=== PATIENT | male | born 1995 | race Two or more races ===

== ENCOUNTER 2017-08-03 08:28 | Emergency (ER) | payer BC, OTHER ==
[2017-08-03 08:40] VITALS: BP 144/75
[2017-08-03] MEDS ORDERED: Ketorolac 60 MG/2 ML SDV IM ONE (08:58)
--- NOTE | 2017-08-03 09:08 | EDM.PDOC ---
ED HPI GENERAL MEDICAL PROBLEM - General Chief Complaint: Genitourinary Problem Stated Complaint: STITCHES COMING OUT Time Seen by Provider: 08/03/17 08:50 Source of Information: Reports: Patient History Limitations: Reports: No Limitations - History of Present Illness INITIAL COMMENTS - FREE TEXT/NARRATIVE: Patient presents with complaints of scrotal pain. Had a vasectomy on Wednesday and states that both stitches have come out now and feels more pain and a pulling sensation in those areas. Has noted more scrotal swelling over the last 2 days. Was trying to ice but didn't see much improvement. Having more discomfort now. Was only sent home with ibuprofen to use for pain. He has noted mild drainage from the incision sites. No redness or warmth to the area or the scrotum. Is voiding without difficulty. Onset: Gradual Duration: Day(s): Location: Reports: Other (scrotum) Quality: Reports: Throbbing, Other (pulling) Improves with: Reports: Rest Worsens with: Reports: Movement Context: Reports: Other (surgery) Associated Symptoms: Denies: Fever/Chills, Nausea/Vomiting Treatments [employer] ARCHITECT: Reports: NSAIDS Groin Pain Score (Numeric/FACES): 4 - Related Data Allergies Allergy/AdvReac Type Severity Reaction Status Date / Time No Known Allergies Allergy Verified 08/03/17 08:40 Home Meds: Home Meds . [No Known Home Meds] 09/04/16 [History] Past Medical History - Past Health History Medical/Surgical History: Denies Medical/Surgical History Other Musculoskeletal History: Patient c/o right upper posterior leg pain for past two months. - Past Surgical History Male Surgical History: Reports: Vasectomy Social & Family History - Tobacco Use Smoking Status *Q: Never Smoker Years of Tobacco use: 3 Packs/Tins Daily: 0.5 - Caffeine Use Caffeine Use: Reports: None - Alcohol Use Days Per Week of Alcohol Use: 1 Number of Drinks Per Day: 4 Total Drinks Per Week: 4 - Recreational Drug Use Recreational Drug Use: No ED ROS GENERAL - Review of Systems Review Of Systems: ROS reveals no pertinent complaints other than HPI. ED EXAM, RENAL/ - Physical Exam Exam: See Below Exam Limited By: No Limitations General Appearance: Alert, WD/WN, No Apparent Distress GI/Abdominal: Normal Bowel Sounds, Soft, Non-Tender (Male) Exam: Scrotal Swelling, Scrotum Tenderness (L), Testicular Tenderness (L), Testicular Tenderness (R), Other (Patient does have 2 open 0.5 cm incisions to bilateral scrotum. Oozing serous drainage. Did culture. No redness or warmth. Swelling and tenderness noted. ) Neurological: Alert, Oriented Psychiatric: Normal Affect, Normal Mood Skin Exam: Wound/Incision. No: Erythema Course - Vital Signs Last Recorded V/S: Last Vital Signs Temp 98.6 F 08/03/17 08:34 Pulse 73 08/03/17 08:34 Resp 16 08/03/17 08:34 BP 144/75 H 08/03/17 08:34 Pulse Ox 98 08/03/17 08:34 - Orders/Labs/Meds Orders: Active Orders 24 hr Category Date Time Status CULTURE WOUND [RM] Stat Lab 08/03/17 08:59 Ordered Meds: Medications Discontinued Medications Generic Name Dose Route Start Last Admin Trade Name Freq PRN Reason Stop Dose Admin Ketorolac Tromethamine 60 mg 08/03/17 08:58 08/03/17 09:05 Toradol IM 08/03/17 08:59 60 mg ONETIME ONE Administration Departure - Departure Time of Disposition: 09:04 Disposition: Home, Self-Care 01 Condition: Good Clinical Impression: History of vasectomy, Scrotal swelling - Discharge Information Forms: ED Department Discharge Additional Instructions: 1. Rest 2. Elevate scrotum on pillow 3. Ice scrotum 4. Monitor for redness or further drainage 5. Toradol 10 mg every 6 hours as needed for discomfort and swelling 6. Contact surgeon if any other concerns. - My Orders Last 24 Hours: My Active Orders 08/03/17 08:59 CULTURE WOUND [RM] Stat - Assessment/Plan Last 24 Hours: My Active Orders 08/03/17 08:59 CULTURE WOUND [RM] Stat
== END 2017-08-03 09:15 | disposition home or self-care (01) ==
LOC: CC.ED 08:28
DX: N50.89 Other specified disorders of the male genital organs (principal); Z98.52 Vasectomy status
CPT/HCPCS: 87070; 96372; 99283; J1885

== ENCOUNTER 2018-11-21 23:31 | Emergency (ER) | payer OTHER, MEDICAID ==
[2018-11-21] MEDS ORDERED: Cyclobenzaprine 10 MG Tab PO ONE (23:32)
[2018-11-21] MEDS ORDERED: Acetaminophen/HYDROcodone 325-5 MG Tab PO ONE (23:32)
[2018-11-21 23:35] VITALS: BP 127/76
--- NOTE | 2018-11-21 23:51 | EDM.PDOC ---
ED HPI GENERAL MEDICAL PROBLEM - General Chief Complaint: Back Pain or Injury Stated Complaint: low back pain Time Seen by Provider: 11/21/18 23:40 Source of Information: Reports: Patient History Limitations: Reports: No Limitations - History of Present Illness INITIAL COMMENTS - FREE TEXT/NARRATIVE: in with c/o low back pain x 2 days, no problems voiding or having a BM, no numbness in back or into legs, no alberto anal/rectal numbness, no problems ambulating, no abd pain, no nvdc, no cp or sob, no fever or chills, advised bent over to picking tech something when sx started, does have a hx of low back problems Onset: Gradual Duration: Day(s): (2) Location: Reports: Back Quality: Reports: Ache, Same as Previous Episode Severity: Moderate Improves with: Reports: None Worsens with: Reports: Movement Context: Reports: Other (as above) Associated Symptoms: Reports: No Other Symptoms. Denies: Headaches, Nausea/ Vomiting, Weakness Treatments [employer] TECHNICAL OFFICER: Reports: Other (see below) (none) Lower Back Pain Score (Numeric/FACES): 9 - Related Data Allergies Allergy/AdvReac Type Severity Reaction Status Date / Time No Known Allergies Allergy Verified 11/21/18 23:54 Home Meds: Home Meds . [No Known Home Meds] 09/04/16 [History] Past Medical History - Past Health History Medical/Surgical History: Denies Medical/Surgical History Musculoskeletal History: Reports: Back Pain, Chronic Other Musculoskeletal History: Patient c/o right upper posterior leg pain for past two months. - Past Surgical History Head Surgeries/Procedures: Reports: None Male Surgical History: Reports: Vasectomy Social & Family History - Family History Cardiac: Reports: Hypertension - Tobacco Use Smoking Status *Q: Never Smoker - Caffeine Use Caffeine Use: Reports: None - Alcohol Use Alcohol Use History: Yes - Living Situation & Occupation Living situation: Reports: , with Family ED ROS GENERAL - Review of Systems Review Of Systems: See Below Constitutional: Reports: No Symptoms. Denies: Fever, Chills, Weakness HEENT: Reports: No Symptoms Respiratory: Reports: No Symptoms. Denies: Shortness of Breath, Cough Cardiovascular: Reports: No Symptoms. Denies: Chest Pain Endocrine: Reports: No Symptoms GI/Abdominal: Reports: No Symptoms. Denies: Abdominal Pain, Constipation, Diarrhea, Nausea, Vomiting : Reports: No Symptoms. Denies: Dysuria, Flank Pain, Frequency, Incontinence , Pain, Urgency, Urinary Retention Musculoskeletal: Reports: No Symptoms, Back Pain (low back pain). Denies: Neck Pain Skin: Reports: No Symptoms Neurological: Reports: No Symptoms Psychiatric: Reports: No Symptoms ED EXAM,LOWER BACK PAIN/INJURY - Physical Exam Exam: See Below Exam Limited By: No Limitations General Appearance: Alert, WD/WN Neck: Normal Inspection, Supple, Non-Tender, Full Range of Motion Respiratory/Chest: No Respiratory Distress, Lungs Clear, Normal Breath Sounds, No Accessory Muscle Use, Chest Non-Tender Cardiovascular: Normal Peripheral Pulses, Regular Rate, Rhythm, No Edema, No Murmur GI/Abdominal: Normal Bowel Sounds, Soft, Non-Tender, No Distention Back Exam: Normal Inspection, Full Range of Motion, Muscle Spasm (in low back with palpation). No: CVA Tenderness (L), CVA Tenderness (R) Extremities: Normal Inspection, Normal Range of Motion, Non-Tender, No Pedal Edema, Normal Capillary Refill Neurological: Alert, Normal Mood/Affect, Normal Gait, Normal Reflexes, No Motor/ Sensory Deficits, Oriented x 3 DTR - Lower Extremities: 2+: Knee (R), Knee (L) Psychiatric: Normal Affect, Normal Mood Skin Exam: Warm, Dry, Intact, Normal Color, No Rash Course - Vital Signs Last Recorded V/S: Last Vital Signs Temp 35.4 C 11/21/18 23:32 Pulse 78 11/21/18 23:32 Resp 20 11/21/18 23:32 BP 127/76 11/21/18 23:32 Pulse Ox 99 11/21/18 23:32 - Orders/Labs/Meds Meds: Medications Discontinued Medications Generic Name Dose Route Start Last Admin Trade Name Freq PRN Reason Stop Dose Admin Hydrocodone Bitart/Acetaminophen 2 packet 11/21/18 23:55 Take Home: Acetaminophen/Hydrocod, 2 Tab Pack PO 11/21/18 23:56 ONETIME ONE Cyclobenzaprine HCl 2 packet 11/21/18 23:55 Take Home: Cyclobenzaprine 10 Mg, 4 Tab Pack PO 11/21/18 23:56 ONETIME ONE Tizanidine HCl 4 mg 11/21/18 23:57 Zanaflex PO 11/21/18 23:58 ONETIME ONE Departure - Departure Time of Disposition: 00:00 Disposition: Home, Self-Care 01 Condition: Good Clinical Impression: Lumbar spine strain Qualifiers: Encounter type: initial encounter Qualified Code(s): S39.012A - Strain of muscle, fascia and tendon of lower back, initial encounter - Discharge Information *PRESCRIPTION DRUG MONITORING PROGRAM REVIEWED*: Not Applicable *COPY OF PRESCRIPTION DRUG MONITORING REPORT IN PATIENT MIKA: Not Applicable Instructions: Low Back Sprain Forms: ED Department Discharge Additional Instructions: increase fluids robaxin 500mg 3 x a day for 10 days motrin 800mg every 8 hours as needed for pain follow up with the clinic this week, call wednesday for an appointment return to the ED as needed - Problem List & Annotations (1) Lumbar spine strain SNOMED Code(s): 565490942 Code(s): S39.012A - STRAIN OF MUSCLE, FASCIA AND TENDON OF LOWER BACK, INIT Status: Acute Priority: Medium Qualifiers: Encounter type: initial encounter Qualified Code(s): S39.012A - Strain of muscle, fascia and tendon of lower back, initial encounter - Problem List Review Problem List Initiated/Reviewed/Updated: Yes - Assessment/Plan Plan: will dc with flexeril tid until wednesday then will use robaxin, will give norco for 24 hours then motrion 800 mg tid prn, will /u in clinic
[2018-11-21] MEDS ORDERED: Take Home: Cyclobenzaprine 10 MG Tab, 4 Tab Pack PO ONE (23:55)
[2018-11-21] MEDS ORDERED: Take Home: Acetaminophen/HYDROcodone 325-5 MG, 2 Tab Pack PO ONE (23:55)
[2018-11-21] MEDS ORDERED: tiZANidine 4 MG Tab PO ONE (23:57)
== END 2018-11-22 00:15 | disposition home or self-care (01) ==
LOC: CC.ED 23:31
DX: S39.012A Strain of muscle, fascia and tendon of lower back, initial encounter (principal); X58.XXXA Exposure to other specified factors, initial encounter
CPT/HCPCS: 99283; A9270

== ENCOUNTER 2020-11-01 17:09 | Emergency (ER) | payer MEDICAID ==
[2020-11-01 17:13] VITALS: BP 147/77; PULSE 74
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
== END 2020-11-01 17:58 | disposition home or self-care (01) ==
LOC: CC.ED 17:09
DX: S61.512A Laceration without foreign body of left wrist, initial encounter (principal); Z87.891 Personal history of nicotine dependence; W26.0XXA Contact with knife, initial encounter
CPT/HCPCS: 73110-LT; 99283